=== PATIENT | male | born 1970 | race Hispanic/Latino ===

== ENCOUNTER 2019-11-18 14:24 | Inpatient (IN) | payer BC, OTHER ==
[~2019-11-18] VITALS: Ht 175.3 cm; Wt 100.8 kg
[2019-11-18] MEDS ORDERED: ONDANSETRON HCL INJ 2MG/ML 2ML 2 MG/ML VIAL IV STA (14:38)
[2019-11-18] MEDS ORDERED: ONDANSETRON HCL INJ 2MG/ML 2ML 2 MG/ML VIAL ONE (14:41)
[2019-11-18] MEDS ORDERED: MORPHINE SULFATE INJ 4 MG/ML INJ 1ML IV PRN (14:45)
[2019-11-18] MEDS ORDERED: MORPHINE SULFATE INJ 4 MG/ML INJ 1ML IV ONE (14:45)
[2019-11-18] MEDS ORDERED: MORPHINE SULFATE 5 MG/ML VIAL IV ONE (14:45)
[2019-11-18] MEDS ORDERED: MORPHINE SULFATE INJ 4 MG/ML INJ 1ML ONE (14:47)
[2019-11-18] MEDS ORDERED: MORPHINE SULFATE 2 MG/ML SYR 1ML IV PRN (15:00)
[2019-11-18 15:03] LABS: BASOPHILS # (AUTO) 0.1 (0.0-0.1); BASOPHILS % 0.5 % (0.0-1.0); EOSINOPHILS # (AUTO) 0.1 (0.0-0.4); EOSINOPHILS % 0.6 % (0.0-6.0); HEMATOCRIT 50.3 % (38.2-49.6); HEMOGLOBIN 16.9 g/dL (14.0-18.0); LYMPHOCYTES # (AUTO) 3.6 (1.0-3.2); LYMPHOCYTES % 32.5 % (18.0-39.1); MEAN CORPUSCULAR HEMOGLOBIN 29.3 pg (28-32); MEAN CORPUSCULAR HGB CONC 33.6 g/dL (31-35); MEAN CORPUSCULAR VOLUME 87.2 fL (81-99); MONOCYTES % 9.4 % (4.4-11.3); NEUTROPHILS # (AUTO) 6.2 (2.1-6.9); NEUTROPHILS % 56.7 % (38.7-80.0); PLATELET COUNT 281 x10e3/uL (140-360); RED BLOOD COUNT 5.77 x10e6/uL (4.3-5.7); RED CELL DISTRIBUTION WIDTH 13.6 % (11.7-14.4)
[2019-11-18 15:22] LABS: ALANINE AMINOTRANSFERASE 663 IU/L (0-55); ALBUMIN 4.2 g/dL (3.5-5.0); ALBUMIN/GLOBULIN RATIO 1.2 (0.8-2.0); ALKALINE PHOSPHATASE 158 IU/L (40-150); ANION GAP 18.1 mmol/L (8-16); BLOOD UREA NITROGEN 14 mg/dL (7-26); BUN/CREATININE RATIO 12 (6-25); CALCIUM 9.6 mg/dL (8.4-10.2); CARBON DIOXIDE 21 mmol/L (22-29); CHLORIDE 104 mmol/L (98-107); CREATINE KINASE 137 IU/L (30-200); CREATININE, SERUM 1.13 mg/dL (0.72-1.25); EST GLOMERULAR FILTRATION RATE > 60 ML/MIN (60-); GLUCOSE 138 mg/dL (74-118); POTASSIUM 3.1 mmol/L (3.5-5.1); SODIUM 140 mmol/L (136-145)
[2019-11-18] MEDS ORDERED: PIPER-TAZ 3.375 GM 50 ML IV STA (15:35)
--- NOTE | 2019-11-18 16:15 | Diagnostic Imaging Report ---
EXAMINATION: CHEST SINGLE (PORTABLE) INDICATION: Vomiting COMPARISON: None FINDINGS: LINES/TUBES:None LUNGS:The lungs are well-inflated. No focal consolidation or pulmonary edema. PLEURA:No pleural effusion or pneumothorax. MEDIASTINUM:The cardiomediastinal silhouette appears normal in size and shape. BONES/SOFT TISSUES:No acute osseous injury. Right clavicle ORIF hardware in place. ABDOMEN:No free air under the diaphragm. IMPRESSION: No focal pneumonia or pulmonary edema. Signed by: Haile Dunn MD on 11/18/2019 4:12 PM
[2019-11-18] MEDS ORDERED: SODIUM CHLORIDE 0.9% 50ML 50 ML ONE (16:28)
[2019-11-18] MEDS ORDERED: IOPAMIDOL 370 MG/ML 200 ML INFUS..BTL INJ ONE (16:28)
[2019-11-18] MEDS ORDERED: SODIUM CHLORIDE 0.9% 1000ML 1,000 ML IV STA (17:05)
[2019-11-18] MEDS ORDERED: SODIUM CHLORIDE 0.9% 1000ML 1,000 ML IV SCH (17:15)
[2019-11-18] MEDS ORDERED: HYDROMORPHONE 1MG/1ML INJ IV PRN ×2 (17:15→17:45)
--- OUTSIDE RECORDS SUMMARY | 2019-11-18 17:23 | XMS REPORT ---
Author Author [facility] Address Unknown Phone Unavailable Care Team Providers Care Svp Programmatic Tv Name Role Phone BEAR IRENE Unavailable Unavailable Problems This patient has no known problems. Allergies, Adverse Reactions, Alerts This patient has no known allergies or adverse reactions. Medications This patient has no known medications. Results Test Description Test Time Test Comments Text Results Atomic Results Result Comments CHEST SINGLE (PORTABLE) 2019-11-18 16:11:00 [place] [address] Patient Name: MIGUEL URIOSTEGUI MR #: [id number] : 1970 Age/Sex: 49/M Req #: [id number] Adm Physician: Ordered by: BEAR IRENE DO Report #: [id number] Location: ER Room/Bed: Procedure: [id number] DX/CHEST SINGLE (PORTABLE) Exam Date: 11/18/19 Exam Time: 1545 REPORT STATUS: Signed EXAMINATION: CHEST SINGLE (PORTABLE) I NDICATION: Vomiting COMPARISON: None FINDINGS: LINES/TUBES:None LUNGS:The lungs are well-inflated. No focal consolidation or pulmonary edema. PLEURA:No pleural effusion or pneumothorax. MEDIASTINUM:The cardiomediastinal silhouette appears normal in size and shape. BONES/SOFT TISSUES:No acute osseous injury. Right clavicle ORIF hardware in place. ABDOMEN:No free air under the diaphragm. IMPRESSION: No focal pneumonia or pulmonary edema. Signed by: Brent Harris MD on 11/18/2019 4:12 PM Dictated By: BRENT HARRIS MD 1612 Transcribed By: GORAN on 11/18/19 1612 COPY TO: BEAR IRENE DO
--- NOTE | 2019-11-18 17:38 | NUR ---
calling deborah for report
--- NOTE | 2019-11-18 18:01 | Diagnostic Imaging Report ---
EXAM: CT Abdomen and Pelvis WITH contrast INDICATION: VOMITING COMPARISON: None. TECHNIQUE: Abdomen and pelvis were scanned utilizing a multidetector helical scanner from the lung base to the pubic symphysis after administration of IV contrast. Coronal and sagittal reformations were obtained. Dose modulation, iterative reconstruction, and/or weight based adjustment of the mA/kV was utilized to reduce the radiation dose to as low as reasonably achievable. Routine protocol was performed. Scan was performed when during portal venous phase. IV CONTRAST: 150 mL of Omnipaque 300 ORAL CONTRAST: Water COMPLICATIONS: None RADIATION DOSE: Total DLP: 716.59 mGy-cm Estimated effective dose: (DLP x 0.015 x size factor) mSv CTDIvol has been reviewed. It is below the limits set by the Radiation Protocol Committee (RPC). FINDINGS: LINES and TUBES: None. LOWER THORAX: Unremarkable HEPATOBILIARY: The liver is diffuse hypodense compared to the spleen, consistent with diffuse hepatic diffuse hepatic steatosis. No focal hepatic lesions. No biliary ductal dilation. GALLBLADDER: No radio-opaque stones or sludge. No gallbladder wall thickening. SPLEEN: No splenomegaly. No focal splenic lesion. PANCREAS: There is very mild edema on infiltration of the pancreas with adjacent inflammatory stranding noted. There is a small peripancreatic amorphous fluid collection seen. No evidence of pseudocyst formation. The pancreas demonstrates adequate enhancement excluding necrosis. No focal masses or ductal dilatation. ADRENALS: No adrenal nodules KIDNEYS/URETERS: Kidneys enhance symmetrically. No hydronephrosis. No cystic or solid mass lesions. No stones. GI TRACT: No abnormal distention, wall thickening, or evidence of bowel obstruction. PELVIC ORGANS/BLADDER: Unremarkable. LYMPH NODES: No lymphadenopathy. VESSELS: No aortic aneurysm or dissection. PERITONEUM / RETROPERITONEUM: No free air. Small volume of fluid is seen in the pelvis. BONES: No abnormal lytic or blastic lesion. SOFT TISSUES: There is a small fat containing para-umbilical hernia. IMPRESSION: Mild acute pancreatitis. Signed by: Sandip Mayes MD on 11/18/2019 5:57 PM
--- NOTE | 2019-11-18 19:15 | NUR ---
patient received awake, alert, sitting up in bed. vss. patient continues to c/o upper abd pain 8/10 with nausea. iv bolus continues to infuse without difficulty. admit assessment/history obtained. patient instructed to call for assistance when needed.
--- NOTE | 2019-11-18 19:35 | NUR ---
PATIENT IN STABLE CONDITION WITH NO S/S OF RESPIRATORY DISTRESS. IV BOLUS INFUSING. TELEMETRY APPLIED. CALL LIGHT IS WITHIN REACH- PATIENT INSTRUCTED TO CALL FOR ASSISTANCE NEEDED. BEDSIDE SHIFT REPORT GIVEN TO ONCOMING NURSE.
[2019-11-18 20:01] VITALS: BP 156/82
[2019-11-18] MEDS: ONDANSETRON HCL INJ 2MG/ML 2ML 2 MG/ML VIAL IV PRN (20:59)
[2019-11-18] MEDS: HYDROMORPHONE 2MG/ML 2 MG/ML ML IV PRN (20:59)
--- NOTE | 2019-11-18 21:00 | NUR ---
patient medicated with dilaudid 2mg and zofran 4mg ivp for c/o upper abd pain 03/02 at this time.
[2019-11-18 22:31] VITALS: BP 156/82
[2019-11-19] VITALS (9 sets, daily range): BP systolic 133–157; BP diastolic 78–88
[2019-11-19] MEDS: ONDANSETRON HCL INJ 2MG/ML 2ML 2 MG/ML VIAL IV PRN ×5 (01:12→21:43)
[2019-11-19] MEDS: HYDROMORPHONE 2MG/ML 2 MG/ML ML IV PRN ×6 (01:12→21:43)
--- NOTE | 2019-11-19 01:12 | NUR ---
patient medicated with dilaudid 2mg and zofran 4mg ivp for c/o upper abd pain 03/02 with n/v at this time.
[2019-11-19 05:30] LABS: BASOPHILS % 0.1 % (0.0-1.0); EOSINOPHILS # (AUTO) 0.1 (0.0-0.4); EOSINOPHILS % 0.8 % (0.0-6.0); HEMATOCRIT 50.4 % (38.2-49.6); HEMOGLOBIN 16.6 g/dL (14.0-18.0); LYMPHOCYTES % 6.6 % (18.0-39.1); MEAN CORPUSCULAR HEMOGLOBIN 28.8 pg (28-32); MEAN CORPUSCULAR HGB CONC 32.9 g/dL (31-35); MEAN CORPUSCULAR VOLUME 87.3 fL (81-99); MONOCYTES # (AUTO) 0.9 (0.2-0.8); MONOCYTES % 6.4 % (4.4-11.3); NEUTROPHILS # (AUTO) 12.4 (2.1-6.9); NEUTROPHILS % 85.8 % (38.7-80.0); PLATELET COUNT 205 x10e3/uL (140-360); RED BLOOD COUNT 5.77 x10e6/uL (4.3-5.7); RED CELL DISTRIBUTION WIDTH 13.9 % (11.7-14.4)
--- NOTE | 2019-11-19 05:30 | NUR ---
patient medicated with dilaudid 2mg and zofran 4mg ivp for c/o upper abd pain 03/02 at this time.
[2019-11-19 05:53] LABS: ALANINE AMINOTRANSFERASE 454 IU/L (0-55); ALBUMIN 3.9 g/dL (3.5-5.0); ALBUMIN/GLOBULIN RATIO 1.3 (0.8-2.0); ALKALINE PHOSPHATASE 134 IU/L (40-150); ANION GAP 13.1 mmol/L (8-16); BLOOD UREA NITROGEN 13 mg/dL (7-26); BUN/CREATININE RATIO 15 (6-25); CALCIUM 8.7 mg/dL (8.4-10.2); CARBON DIOXIDE 21 mmol/L (22-29); CHLORIDE 108 mmol/L (98-107); CREATININE, SERUM 0.85 mg/dL (0.72-1.25); EST GLOMERULAR FILTRATION RATE > 60 ML/MIN (60-); GLUCOSE 124 mg/dL (74-118); POTASSIUM 4.1 mmol/L (3.5-5.1); SODIUM 138 mmol/L (136-145)
--- NOTE | 2019-11-19 07:00 | NUR ---
BESIDE SHIFT REPORT RECEIVED FROM INSTRUCTOR HAIRSPRING RN. PT DENIES NEEDS AT THIS TIME.
[2019-11-19] MEDS: DEXTROSE 5%/0.45% SOD CHL 1,000 ML IV SCH ×2 (09:46→17:40)
--- NOTE | 2019-11-19 09:50 | NUR ---
Pt unavailable at this time. Pt's nurse performing procedure bedside. Will follow up as able. GENARO PASTRANA Parking Lot Signaler [facility] Care Department O: [phone]
[2019-11-19] MEDS ORDERED: GADOBENATE DIMEGLUMINE 1 ML IV ONE (09:58)
[2019-11-19] MEDS ORDERED: SODIUM CHLORIDE 0.9% 100 ML ONE (09:58)
[2019-11-19 10:15] LABS: AMYLASE 604 U/L (25-125); LIPASE 703 U/L (8-78)
--- NOTE | 2019-11-19 19:12 | NUR ---
RECEIVED BEDSIDE SHIFT REPORT FROM PREVIOUS NURSE. CALL LIGHT WITHIN REACH. PATIENT SITTING IN BED. PATIENT IN NO PAIN OR DISTRESS.
[2019-11-19 19:31] LABS: ALANINE AMINOTRANSFERASE 335 IU/L (0-55); ALBUMIN 3.6 g/dL (3.5-5.0); ALBUMIN/GLOBULIN RATIO 1.2 (0.8-2.0); ALKALINE PHOSPHATASE 112 IU/L (40-150); ANION GAP 9.5 mmol/L (8-16); BLOOD UREA NITROGEN 11 mg/dL (7-26); BUN/CREATININE RATIO 13 (6-25); CALCIUM 9.3 mg/dL (8.4-10.2); CARBON DIOXIDE 28 mmol/L (22-29); CHLORIDE 104 mmol/L (98-107); CREATININE, SERUM 0.82 mg/dL (0.72-1.25); EST GLOMERULAR FILTRATION RATE > 60 ML/MIN (60-); GLUCOSE 112 mg/dL (74-118); POTASSIUM 4.5 mmol/L (3.5-5.1); SODIUM 137 mmol/L (136-145)
[2019-11-20] VITALS (8 sets, daily range): BP systolic 130–149; BP diastolic 68–85
[2019-11-20] MEDS: ONDANSETRON HCL INJ 2MG/ML 2ML 2 MG/ML VIAL IV PRN ×2 (01:48→05:57)
[2019-11-20] MEDS: HYDROMORPHONE 2MG/ML 2 MG/ML ML IV PRN ×2 (01:48→05:57)
--- NOTE | 2019-11-20 03:30 | NUR ---
DID HOURLY ROUNDING. PATIENT ASLEEP IN BED. CALL LIGHT WITHIN REACH.
[2019-11-20] MEDS: DEXTROSE 5%/0.45% SOD CHL 1,000 ML IV SCH (03:47)
[2019-11-20 05:55] LABS: BASOPHILS % 0.1 % (0.0-1.0); EOSINOPHILS % 0.1 % (0.0-6.0); HEMATOCRIT 50.1 % (38.2-49.6); HEMOGLOBIN 16.5 g/dL (14.0-18.0); LYMPHOCYTES # (AUTO) 1.2 (1.0-3.2); LYMPHOCYTES % 7.7 % (18.0-39.1); MEAN CORPUSCULAR HEMOGLOBIN 29.1 pg (28-32); MEAN CORPUSCULAR HGB CONC 32.9 g/dL (31-35); MEAN CORPUSCULAR VOLUME 88.4 fL (81-99); MONOCYTES # (AUTO) 1.2 (0.2-0.8); MONOCYTES % 7.7 % (4.4-11.3); PLATELET COUNT 167 x10e3/uL (140-360); RED BLOOD COUNT 5.67 x10e6/uL (4.3-5.7); RED CELL DISTRIBUTION WIDTH 13.9 % (11.7-14.4)
--- NOTE | 2019-11-20 06:00 | NUR ---
PATIENT COMPLAINING OF MID BACK PAIN THAT MAKES IT HARD TO BREATH AND WANTS THE DOCTOR TO KNOW. CALLED AND TALKED TO DR. Bipin HERNANDEZ ABOUT THE PATIENT CONCERN. DR. Albina HERNANDEZ SAID HE PUT AN ORDER IN FOR GI CONSULT, DR. Faina HERNANDEZ 2 DAYS AGO WHEN THE PATIENT WAS IN ER AND I SAID NO CONSULTS ARE IN THE COMPUTER AND I CAN PUT A CONSULT FOR THE DOCTOR. DR. Bipin HERNANDEZ SAID TO PUT THE CONSULT AND CALL DR. Faina HERNANDEZ AND SAY TO SEE THE PATIENT FOR ACUTE PANCEATITIS.
--- NOTE | 2019-11-20 06:05 | NUR ---
CALLED DR. Faina HERNANDEZ ABOUT THE CONSULT AND HE SAID HIS BROTHER IS CALLING HIM AND WILL SEE THE PATIENT
[2019-11-20 06:20] LABS: AMYLASE 317 U/L (25-125); LIPASE 245 U/L (8-78)
--- NOTE | 2019-11-20 07:00 | NUR ---
BESIDE SHIFT REPORT RECEIVED FROM MANNEQUIN DECORATOR RN. PT DENIES NEEDS AT THIS TIME.
--- NOTE | 2019-11-20 07:07 | NUR ---
GAVE BEDSIDE SHIFT REPORT TO ONCOMING NURSE. CALL LIGHT WITHIN REACH. PATIENT IN BED.
[2019-11-20] MEDS ORDERED: KETOROLAC TROMETHAMINE 30 MG/ML VIAL IV ONE (08:15)
[2019-11-20] MEDS ORDERED: LACTATED RINGER'S 1,000 ML INJ SCH (09:00)
[2019-11-20] MEDS ORDERED: LACTATED RINGER'S 1,000 ML INJ ONE (09:00)
[2019-11-20 09:34] LABS: ALANINE AMINOTRANSFERASE 272 IU/L (0-55); ALBUMIN 3.7 g/dL (3.5-5.0); ALBUMIN/GLOBULIN RATIO 1.1 (0.8-2.0); ALKALINE PHOSPHATASE 104 IU/L (40-150); ANION GAP 15.6 mmol/L (8-16); BLOOD UREA NITROGEN 9 mg/dL (7-26); BUN/CREATININE RATIO 11 (6-25); CALCIUM 9.3 mg/dL (8.4-10.2); CARBON DIOXIDE 20 mmol/L (22-29); CHLORIDE 103 mmol/L (98-107); CREATININE, SERUM 0.85 mg/dL (0.72-1.25); EST GLOMERULAR FILTRATION RATE > 60 ML/MIN (60-); GLUCOSE 97 mg/dL (74-118); POTASSIUM 3.6 mmol/L (3.5-5.1); SODIUM 135 mmol/L (136-145)
--- NOTE | 2019-11-20 09:55 | Diagnostic Imaging Report ---
TECHNIQUE: MRI of the abdomen and MRCP WITHOUT and WITH intravenous contrast. 3-D volume reconstructions were obtained to evaluate the biliary ductal system. INDICATION: ^RO PANCREATITIS. COMPARISON: None. FINDINGS: LOWER THORAX: Unremarkable. LIVER: No hepatic signal abnormality. No focal hepatic lesions. BILIARY: A single stone in the gallbladder measures 0.4 cm. There is no gallbladder distention, but there is mild gallbladder wall edema. No biliary ductal dilatation or filling defect. The common bile duct measures 0.4 cm in diameter. SPLEEN: No splenomegaly. PANCREAS: There is interstitial increased T2-weighted signal in the pancreas. In addition, fluid is seen around the pancreas extending down both paracolic gutters, left greater than right. ADRENALS: No adrenal nodules. KIDNEYS/URETERS: No hydronephrosis or solid mass lesions. A right lower pole simple renal cyst measures 0.6 cm. PERITONEUM/RETROPERITONEUM: Small volume ascites. LYMPH NODES: No lymphadenopathy. VESSELS: Unremarkable. GI TRACT: No distention or wall thickening. BONES AND SOFT TISSUES: Unremarkable. IMPRESSION: 1. Acute interstitial edematous pancreatitis without pancreatic necrosis or drainable peripancreatic fluid collection. 2. Cholelithiasis without acute cholecystitis. The gallbladder wall thickening is likely reactive to the pancreatitis. 3. No biliary ductal dilation or choledocholithiasis. Signed by: Rivera Austin JR, MD on 11/20/2019 9:52 AM
--- NOTE | 2019-11-20 11:31 | Diagnostic Imaging Report ---
EXAM: Right upper quadrant abdominal ultrasound INDICATION: Right upper quadrant pain COMPARISON: Abdomen and pelvis CT of 11/18/2019 TECHNIQUE: Transverse and longitudinal images of the right upper quadrant abdomen were obtained FINDINGS: Liver: Size: 16.4 cm in the right midclavicular line, normal Appearance: Increased echogenicity, smooth contour Mass: No focal masses Gallbladder: 1 cm dependent gallstone in the gallbladder. No gallbladder wall thickening, pericholecystic fluid, or gallbladder distention. Negative sonographic Gibbons's sign. Bile Ducts: Intrahepatic Ducts: No dilatation Extrahepatic Ducts: Common bile duct measures 4 mm Pancreas: Not well visualized due to overlying bowel gas. Kidney: The right kidney measures 12.1 cm without evidence of hydronephrosis or stone. Vessels: Aorta: Visualized portions are normal Inferior Vena Cava: Visualized portions are normal Main Portal Vein: 0.8 cm, normal size with hepatopetal flow. Free Fluid: No ascites or pleural effusion IMPRESSION: Cholelithiasis without sonographic evidence of cholecystitis. Signed by: Haile Dunn MD on 11/20/2019 11:27 AM
[2019-11-20] MEDS: KETOROLAC TROMETHAMINE 30 MG/ML VIAL IV PRN ×2 (12:05→18:02)
[2019-11-20] MEDS: LACTATED RINGER'S 1,000 ML INJ SCH ×2 (12:56→18:02)
--- NOTE | 2019-11-20 13:12 | Diagnostic Imaging Report ---
EXAMINATION: CHEST 2 VIEWS INDICATION: Pneumonia COMPARISON: Chest radiograph 11/18/2019 FINDINGS: LINES/TUBES:EKG leads overlie the chest. LUNGS:The lungs are moderately inflated. Minimal bibasilar patchy opacities. PLEURA:No pleural effusion or pneumothorax. MEDIASTINUM:The cardiomediastinal silhouette appears unchanged in size and shape. BONES/SOFT TISSUES:No acute osseous injury. Unchanged right clavicular hardware. ABDOMEN:No free air under the diaphragm. IMPRESSION: No focal pneumonia or pulmonary edema. Mild bibasilar subsegmental atelectasis. Signed by: Haile Dunn MD on 11/20/2019 1:09 PM
--- NOTE | 2019-11-20 19:15 | NUR ---
RECEIVED REPORT FROM PREVIOUS NURSE. CALL LIGHT WITHIN REACH. PATIENT IN RECLINER.
[2019-11-21] VITALS (8 sets, daily range): BP systolic 114–145; BP diastolic 46–83
[2019-11-21] MEDS: KETOROLAC TROMETHAMINE 30 MG/ML VIAL IV PRN ×2 (00:30→06:31)
[2019-11-21] MEDS: LACTATED RINGER'S 1,000 ML INJ SCH ×2 (00:30→05:54)
[2019-11-21] MEDS: ONDANSETRON HCL INJ 2MG/ML 2ML 2 MG/ML VIAL IV PRN ×2 (00:30→06:31)
--- NOTE | 2019-11-21 03:04 | NUR ---
DID HOURLY ROUNDING. PATIENT ASLEEP IN BED.
[2019-11-21 05:55] LABS: BASOPHILS % 0.4 % (0.0-1.0); EOSINOPHILS # (AUTO) 0.1 (0.0-0.4); EOSINOPHILS % 1.1 % (0.0-6.0); HEMATOCRIT 41.8 % (38.2-49.6); HEMOGLOBIN 13.9 g/dL (14.0-18.0); MEAN CORPUSCULAR HEMOGLOBIN 28.9 pg (28-32); MEAN CORPUSCULAR HGB CONC 33.3 g/dL (31-35); MEAN CORPUSCULAR VOLUME 86.9 fL (81-99); MONOCYTES # (AUTO) 1.2 (0.2-0.8); MONOCYTES % 10.9 % (4.4-11.3); NEUTROPHILS # (AUTO) 8.8 (2.1-6.9); NEUTROPHILS % 78.3 % (38.7-80.0); PLATELET COUNT 170 x10e3/uL (140-360); RED BLOOD COUNT 4.81 x10e6/uL (4.3-5.7); RED CELL DISTRIBUTION WIDTH 13.5 % (11.7-14.4)
[2019-11-21 06:42] LABS: AMYLASE 148 U/L (25-125); ANION GAP 9.7 mmol/L (8-16); BLOOD UREA NITROGEN 12 mg/dL (7-26); BUN/CREATININE RATIO 16 (6-25); CALCIUM 8.7 mg/dL (8.4-10.2); CARBON DIOXIDE 25 mmol/L (22-29); CHLORIDE 105 mmol/L (98-107); CREATININE, SERUM 0.76 mg/dL (0.72-1.25); EST GLOMERULAR FILTRATION RATE > 60 ML/MIN (60-); GLUCOSE 83 mg/dL (74-118); LIPASE 112 U/L (8-78); POTASSIUM 3.7 mmol/L (3.5-5.1); SODIUM 136 mmol/L (136-145)
--- NOTE | 2019-11-21 07:00 | NUR ---
received bedside report. pt is alert resting in bed, no s/s of distress. call light within reach and instructed pt to call RN for help
--- NOTE | 2019-11-21 07:05 | NUR ---
GAVE BEDSIDE SHIFT REPORT TO ONCOMING NURSE. CALL LIGHT WITHIN REACH. PATIENT IN BED.
[2019-11-21] MEDS ORDERED: IOPAMIDOL 300MG/ML 50ML INFUS..BTL IV ONE (10:03)
[2019-11-21] MEDS ORDERED: BUPIVACAINE 0.5%/EPI 30 ML SDV INJ ONE (10:04)
[2019-11-21] MEDS ORDERED: PANTOPRAZOLE 40 MG 10ML VIAL IV SCH (11:30)
[2019-11-21] MEDS ORDERED: LEVOFLOXACIN 500MG/D5W 100ML 100 ML IV SCH (11:30)
[2019-11-21] MEDS ORDERED: ACETAMINOPHEN 1000 MG/100 ML IV PRN (11:30)
[2019-11-21] MEDS ORDERED: HYDROCODONE/APAP 7.5MG-325MG 1 EA TAB PO PRN (11:30)
[2019-11-21] MEDS ORDERED: ONDANSETRON HCL INJ 2MG/ML 2ML 2 MG/ML VIAL IV PRN (11:30)
--- NOTE | 2019-11-21 12:20 | Operative Report ---
DATE OF PROCEDURE: 11/21/2019 SURGEON: Jamison Prakash MD PREOPERATIVE DIAGNOSES: Cholecystitis, cholelithiasis, and gallstone pancreatitis, rule out common bile duct stone. POSTOPERATIVE DIAGNOSES: Cholecystitis, cholelithiasis, gallstone pancreatitis. No retained common duct stones. OPERATION PERFORMED: Laparoscopic cholecystectomy with intraoperative cholangiograms. ANESTHESIA: General. COMPLICATIONS: None. ESTIMATED BLOOD LOSS: Minimal. DESCRIPTION OF PROCEDURE: The patient lying in bed in the supine position under good general endotracheal anesthesia. The abdomen was prepped with Betadine solution and draped in the usual manner. A Veress needle was placed into the umbilicus and pneumoperitoneum was established without any difficulty. An 11 mm trocar was placed into the umbilicus and a 10 mm videolaparoscope was placed into the intraabdominal cavity. Under direct vision, three 5 mm trocars were placed in the right subcostal region. Videolaparoscopy at this point revealed distended gallbladder. There were no other intraabdominal abnormalities. The peritoneum overlying the neck of the gallbladder was then opened and the cystic duct was identified. The cystic duct was followed to its junction with the common duct. The cystic duct was then circumferentially dissected and a clip was placed at the neck of the gallbladder. A small opening was made into the cystic duct and a cholangiocath was introduced into the cystic duct. Using fluoroscopy, half-strength dye was then introduced into the biliary tree, this showed free flow of dye into the duodenum and no retained common duct filling defects. The cholangiocath was then removed. The cystic duct was then doubly clipped and divided. The cystic artery was similarly doubly clipped and divided. The gallbladder was then slowly and carefully taken off the liver bed using the cautery scissors and perfect hemostasis was ascertained. The gallbladder was then grasped through the umbilical port and removed without any difficulty. Videolaparoscopy was then again carried out. The liver bed was found to be perfectly dry. All the excess fluid was aspirated. The pneumoperitoneum was evacuated and all the trocars were removed under direct vision. The midline fascia at the umbilicus was then closed with a [id number] of 0 Vicryl. All layers were infiltrated on the way out with solution of 0.25% Marcaine. Subcutaneous tissue was approximated with 3-0 Vicryl and the skin was closed with subcuticular 5-0 Vicryl. Benzoin, Steri-Strips and Band-Aids were applied. The sponge, lap, and needle count was correct. The patient tolerated the procedure well and returned to the recovery room in stable condition. MD GERDA Santoyo/SUZY /[id number]
[2019-11-21] MEDS ORDERED: FENTANYL CITRATE/PF 100MCG/2 ML INJ ONE ×2 (12:28→15:03)
[2019-11-21] MEDS: DEXTROSE 5%/LACTATED RINGERS 1,000 ML IV SCH ×2 (13:20→22:25)
--- NOTE | 2019-11-21 14:35 | Diagnostic Imaging Report ---
OR Fluoroscopy: IMPRESSION: Fluoroscopy service provided in the OR. Interpretation not requested. Signed by: César Parikh MD on 11/21/2019 2:32 PM
[2019-11-21] MEDS ORDERED: MIDAZOLAM HCL 2 MG/2 ML VIAL ONE (15:03)
[2019-11-21] MEDS: HYDROMORPHONE 1MG/1ML INJ IV PRN ×2 (15:46→22:26)
[2019-11-21] MEDS ORDERED: ACETAMINOPHEN 1000 MG/100 ML IV ONE (18:24)
[2019-11-21] MEDS ORDERED: LIDOCAINE HCL 2% LOCAL INJ 5 ML SDV VIAL INJ ONE (18:24)
[2019-11-21] MEDS ORDERED: DEXAMETHASONE SOD PHOS INJ 4 MG/ML VIAL ONE (18:24)
[2019-11-21] MEDS ORDERED: PROPOFOL IV EMULSION 10 MG/ML 20 ML VIAL ONE (18:24)
[2019-11-21] MEDS ORDERED: GLYCOPYRROLATE INJ 0.2 MG/ML VIAL ONE (18:24)
[2019-11-21] MEDS ORDERED: ONDANSETRON HCL INJ 2MG/ML 2ML 2 MG/ML VIAL ONE (18:24)
[2019-11-21] MEDS ORDERED: ROCURONIUM BROMIDE 10 MG/ML 5ML VIAL IV ONE (18:24)
[2019-11-21] MEDS ORDERED: METOCLOPRAMIDE HCL 10 MG/2ML VIAL ONE (18:24)
[2019-11-21] MEDS ORDERED: NEOSTIGMINE 1 MG/ML 10ML VIAL ONE (18:24)
[2019-11-21] MEDS ORDERED: SEVOFLURANE INHAL SOLN 250 ML PEN BTL ONE (18:24)
[2019-11-22] MEDS: HYDROMORPHONE 1MG/1ML INJ IV PRN (04:25)
[2019-11-22 04:52] VITALS: BP 143/69
[2019-11-22 06:11] LABS: BASOPHILS % 0.2 % (0.0-1.0); EOSINOPHILS % 0.3 % (0.0-6.0); HEMATOCRIT 36.3 % (38.2-49.6); HEMOGLOBIN 12.2 g/dL (14.0-18.0); LYMPHOCYTES # (AUTO) 0.9 (1.0-3.2); LYMPHOCYTES % 7.9 % (18.0-39.1); MEAN CORPUSCULAR HEMOGLOBIN 29.1 pg (28-32); MEAN CORPUSCULAR HGB CONC 33.6 g/dL (31-35); MEAN CORPUSCULAR VOLUME 86.6 fL (81-99); NEUTROPHILS # (AUTO) 8.8 (2.1-6.9); NEUTROPHILS % 82.2 % (38.7-80.0); PLATELET COUNT 191 x10e3/uL (140-360); RED BLOOD COUNT 4.19 x10e6/uL (4.3-5.7); RED CELL DISTRIBUTION WIDTH 13.5 % (11.7-14.4)
[2019-11-22 06:41] LABS: ALANINE AMINOTRANSFERASE 129 IU/L (0-55); ALBUMIN 2.6 g/dL (3.5-5.0); ALBUMIN/GLOBULIN RATIO 0.8 (0.8-2.0); ALKALINE PHOSPHATASE 66 IU/L (40-150); AMYLASE 79 U/L (25-125); ANION GAP 7.9 mmol/L (8-16); BLOOD UREA NITROGEN 10 mg/dL (7-26); BUN/CREATININE RATIO 13 (6-25); CALCIUM 8.5 mg/dL (8.4-10.2); CARBON DIOXIDE 24 mmol/L (22-29); CHLORIDE 107 mmol/L (98-107); CREATININE, SERUM 0.76 mg/dL (0.72-1.25); EST GLOMERULAR FILTRATION RATE > 60 ML/MIN (60-); GLUCOSE 116 mg/dL (74-118); POTASSIUM 3.9 mmol/L (3.5-5.1); SODIUM 135 mmol/L (136-145)
[2019-11-22 07:53] VITALS: BP 135/75
[2019-11-22 08:00] VITALS: BP 135/75
[2019-11-22] MEDS: DEXTROSE 5%/LACTATED RINGERS 1,000 ML IV SCH (09:44)
--- NOTE | 2019-11-22 09:48 | NUR ---
paged Dr. Prakash to see if diet can be advanced. waiting for call back
== END 2019-11-22 11:45 | disposition home or self-care (01) | DRG 417 ==
LOC: ER 14:24 → ERHOLD 17:04 → MED/SURG3 18:25
PROC: BF131ZZ Fluoroscopy of Gallbladder and Bile Ducts using Low Osmolar Contrast (ICD-10-PCS; 2019-11-21)
PROC: 0FT44ZZ Resection of Gallbladder, Percutaneous Endoscopic Approach (ICD-10-PCS; principal; 2019-11-21 12:30)
DX: K80.12 Calculus of gallbladder with acute and chronic cholecystitis without obstruction (principal); K85.10 Biliary acute pancreatitis without necrosis or infection; J98.11 Atelectasis; E11.9 Type 2 diabetes mellitus without complications; G47.33 Obstructive sleep apnea (adult) (pediatric); K76.0 Fatty (change of) liver, not elsewhere classified
CPT/HCPCS: 36415; 71045; 71046; 74177; 74183; 74300; 76705; 80048; 80053; 80061; 82150; 82550; 82553; 83605; 83690; 84484; 85025; 87040; 87635; 88304; 93005; 96361; 99284; C1766; J1100; J1170; J1885; J1956; J2001; J2250; J2270; J2405; J2543; J2710; J2765; J3010; J7030; J7050; J7121; Q9967

== ENCOUNTER 2021-01-21 20:58 | Emergency (ER) | payer BC ==
[~2021-01-21] VITALS: Ht 175.3 cm; Wt 100.7 kg
[2021-01-21] MEDS ORDERED: KETOROLAC TROMETHAMINE 30 MG/ML VIAL IV STA (21:02)
[2021-01-21] MEDS ORDERED: ONDANSETRON HCL INJ 2MG/ML 2ML 2 MG/ML VIAL IV STA (21:02)
[2021-01-21 21:16] LABS: BASOPHILS % 0.3 % (0.0-1.0); EOSINOPHILS # (AUTO) 0.1 (0.0-0.4); EOSINOPHILS % 0.9 % (0.0-6.0); HEMATOCRIT 46.2 % (38.2-49.6); HEMOGLOBIN 15.4 g/dL (14.0-18.0); LYMPHOCYTES # (AUTO) 3.3 (1.0-3.2); LYMPHOCYTES % 38.4 % (18.0-39.1); MEAN CORPUSCULAR HEMOGLOBIN 28.7 pg (28-32); MEAN CORPUSCULAR HGB CONC 33.3 g/dL (31-35); MONOCYTES # (AUTO) 0.7 (0.2-0.8); MONOCYTES % 7.7 % (4.4-11.3); NEUTROPHILS # (AUTO) 4.5 (2.1-6.9); NEUTROPHILS % 52.5 % (38.7-80.0); PLATELET COUNT 235 x10e3/uL (140-360); RED BLOOD COUNT 5.37 x10e6/uL (4.3-5.7); RED CELL DISTRIBUTION WIDTH 12.7 % (11.7-14.4)
[2021-01-21 21:21] LABS: CLARITY,URINE CLEAR (CLEAR); COLOR,URINE YELLOW (YELLOW)
[2021-01-21 21:22] LABS: KETONES,URINE NEGATIVE (NEGATIVE); LEUKOCYTE ESTERASE ,URINE NEGATIVE (NEGATIVE); NITRITE,URINE NEGATIVE (NEGATIVE); PROTEIN,URINE DIPSTICK NEGATIVE (NEGATIVE); URINE UROBILINOGEN 0.2 mg/dL (0.2 - 1)
[2021-01-21] MEDS ORDERED: KETOROLAC TROMETHAMINE 30 MG/ML VIAL ONE (21:22)
[2021-01-21] MEDS ORDERED: ONDANSETRON HCL INJ 2MG/ML 2ML 2 MG/ML VIAL ONE (21:23)
[2021-01-21 21:29] LABS: BACTERIA,URINE RARE /HPF; MUCUS,URINE FEW (RARE)
[2021-01-21 21:33] LABS: ANION GAP 15.9 mmol/L (8-16); CALCIUM 9.8 mg/dL (8.4-10.2); CREATININE, SERUM 1.24 mg/dL (0.72-1.25); POTASSIUM 3.9 mmol/L (3.5-5.1)
[2021-01-21] MEDS ORDERED: KETOROLAC TROME10 MG PO (23:03)
[2021-01-21] MEDS ORDERED: HYDROCODON-ACE1 EAC9 PO (23:03)
[2021-01-21] MEDS ORDERED: FLOMAX0.4 MG PO (23:03)
[2021-01-21] MEDS ORDERED: ONDANSETRON ODT4 MG PO (23:03)
== END 2021-01-21 23:22 | disposition home or self-care (01) ==
LOC: ER 21:38
DX: M54.5 Low back pain (principal); R10.32 Left lower quadrant pain; N20.1 Calculus of ureter; G47.30 Sleep apnea, unspecified
CPT/HCPCS: 36415; 74176; 80048; 81001; 85025; 93005; 99284; J1885; J2405

== ENCOUNTER 2021-11-26 07:41 | Inpatient (IN) | payer BC ==
[~2021-11-26] VITALS: Ht 175.3 cm; Wt 100.7 kg
[~2021-11-26 07:41] MED LIST: FLOMAX0.4 MG PO; HYDROCODON-ACE1 EAC9 PO; KETOROLAC TROME10 MG PO; ONDANSETRON ODT4 MG PO
[2021-11-26] MEDS ORDERED: SODIUM CHLORIDE 0.9% 1000ML 1,000 ML IV STA (07:57)
[2021-11-26] MEDS ORDERED: KETOROLAC TROMETHAMINE 30 MG/ML VIAL IV STA (07:57)
[2021-11-26] MEDS ORDERED: Morphine 4mg Syringe 4 MG/ML INJ IV STA (07:57)
[2021-11-26] MEDS ORDERED: ONDANSETRON HCL INJ 2MG/ML 2ML 2 MG/ML VIAL IV STA (07:57)
[2021-11-26 08:12] LABS: BASOPHILS # (AUTO) 0.1 (0.0-0.1); BASOPHILS % 0.8 % (0.0-1.0); EOSINOPHILS # (AUTO) 0.1 (0.0-0.4); EOSINOPHILS % 1.3 % (0.0-6.0); HEMATOCRIT 45.6 % (38.2-49.6); HEMOGLOBIN 15.2 g/dL (14.0-18.0); LYMPHOCYTES % 31.8 % (18.0-39.1); MEAN CORPUSCULAR HEMOGLOBIN 29.3 pg (28-32); MEAN CORPUSCULAR HGB CONC 33.3 g/dL (31-35); MEAN CORPUSCULAR VOLUME 87.9 fL (81-99); MONOCYTES # (AUTO) 0.5 (0.2-0.8); NEUTROPHILS # (AUTO) 3.7 (2.1-6.9); NEUTROPHILS % 57.8 % (38.7-80.0); PLATELET COUNT 243 x10e3/uL (140-360); RED BLOOD COUNT 5.19 x10e6/uL (4.3-5.7); RED CELL DISTRIBUTION WIDTH 13.2 % (11.7-14.4)
[2021-11-26 08:30] LABS: ANION GAP 11.8 mmol/L (8-16); CALCIUM 9.2 mg/dL (8.4-10.2); CREATININE, SERUM 1.21 mg/dL (0.72-1.25); POTASSIUM 3.8 mmol/L (3.5-5.1)
[2021-11-26 09:40] LABS: CLARITY,URINE CLEAR (CLEAR); COLOR,URINE YELLOW (YELLOW); KETONES,URINE TRACE (NEGATIVE); LEUKOCYTE ESTERASE ,URINE NEGATIVE (NEGATIVE); NITRITE,URINE NEGATIVE (NEGATIVE); PROTEIN,URINE DIPSTICK 1+ (NEGATIVE); URINE UROBILINOGEN 0.2 mg/dL (0.2 - 1)
[2021-11-26 10:03] LABS: BACTERIA,URINE MODERATE /HPF; EPITHELIAL CELLS,URINE FEW /LPF; MUCUS,URINE FEW (RARE)
[2021-11-26] MEDS ORDERED: Morphine 4mg Syringe 4 MG/ML INJ IV PRN (10:45)
[2021-11-26] MEDS ORDERED: ONDANSETRON HCL INJ 2MG/ML 2ML 2 MG/ML VIAL IV PRN (10:45)
[2021-11-26 12:31] VITALS: BP 142/79
[2021-11-26] MEDS: SODIUM CHLORIDE 0.9% 1000ML 1,000 ML IV SCH ×3 (12:47→19:38)
[2021-11-26] MEDS ORDERED: FENTANYL CITRATE/PF 100MCG/2 ML INJ ONE (13:26)
[2021-11-26 16:46] VITALS: BP 124/71
[2021-11-26 18:55] VITALS: BP 124/71
[2021-11-26 20:00] VITALS: BP 129/68
[2021-11-26 20:30] VITALS: BP 128/68
[2021-11-26] MEDS ORDERED: DOCUSATE SODIUM 100 MG CAP PO PRN (21:15)
[2021-11-26 22:10] LABS: CHOL/HDL RATIO 4.2 (3.9-4.7)
[2021-11-27] VITALS: BP 118/63
[2021-11-27] MEDS: SODIUM CHLORIDE 0.9% 1000ML 1,000 ML IV SCH (03:39)
[2021-11-27 04:00] VITALS: BP 145/76
[2021-11-27 05:32] LABS: BASOPHILS % 0.4 % (0.0-1.0); EOSINOPHILS # (AUTO) 0.1 (0.0-0.4); EOSINOPHILS % 1.4 % (0.0-6.0); LYMPHOCYTES # (AUTO) 1.7 (1.0-3.2); LYMPHOCYTES % 21.4 % (18.0-39.1); MEAN CORPUSCULAR HEMOGLOBIN 29.3 pg (28-32); MEAN CORPUSCULAR HGB CONC 32.6 g/dL (31-35); MONOCYTES # (AUTO) 0.7 (0.2-0.8); MONOCYTES % 9.2 % (4.4-11.3); NEUTROPHILS # (AUTO) 5.2 (2.1-6.9); NEUTROPHILS % 67.2 % (38.7-80.0); PLATELET COUNT 210 x10e3/uL (140-360); RED BLOOD COUNT 4.78 x10e6/uL (4.3-5.7); RED CELL DISTRIBUTION WIDTH 13.2 % (11.7-14.4)
[2021-11-27 05:58] LABS: ALBUMIN 3.4 g/dL (3.5-5.0); ALBUMIN/GLOBULIN RATIO 1.3 (0.8-2.0); ANION GAP 9.9 mmol/L (8-16); CALCIUM 8.2 mg/dL (8.4-10.2); CREATININE, SERUM 0.91 mg/dL (0.72-1.25); POTASSIUM 3.9 mmol/L (3.5-5.1)
[2021-11-27 07:45] VITALS: BP 125/66
[2021-11-27] MEDS ORDERED: IOPAMIDOL 300MG/ML 50ML INFUS..BTL IV ONE (08:41)
[2021-11-27] MEDS ORDERED: MEPERIDINE HCL INJ 25 MG/ML VIAL ONE (10:35)
[2021-11-27 10:47] VITALS: BP 127/76
[2021-11-27 13:14] VITALS: BP 134/72
[2021-11-27 15:31] VITALS: BP 143/75
[2021-11-27] MEDS ORDERED: CEPHALEXIN500 MG PO (17:14)
== END 2021-11-27 18:45 | disposition home or self-care (01) | DRG 661 ==
LOC: ER 07:48 → ERHOLD 10:39 → MED/SURG 11:58
PROVIDERS: ADMIT Internal Medicine; ATTEND Internal Medicine
PROC: 0TC68ZZ Extirpation of Matter from Right Ureter, Via Natural or Artificial Opening Endoscopic (ICD-10-PCS; 2021-11-27)
PROC: BT1D1ZZ Fluoroscopy of Right Kidney, Ureter and Bladder using Low Osmolar Contrast (ICD-10-PCS; principal; 2021-11-27 08:41)
PROC: 0T768DZ Dilation of Right Ureter with Intraluminal Device, Via Natural or Artificial Opening Endoscopic (ICD-10-PCS; 2021-11-27 08:41)
DX: N13.6 Pyonephrosis (principal); E11.9 Type 2 diabetes mellitus without complications; E66.9 Obesity, unspecified; Z68.32 Body mass index [BMI] 32.0-32.9, adult; Z87.442 Personal history of urinary calculi; Z20.822 Contact with and (suspected) exposure to COVID-19
CPT/HCPCS: 36415; 74176; 74420; 80048; 80053; 80061; 81001; 83036; 85025; 87086; 88300; 99284; C1758; C2617; J0696; J1885; J2175; J2270; J2405; J3010; J7030; U0002

== ENCOUNTER → 2022-12-24 | Day surgery (SDC) | payer BC ==
[~2022-12-24] MED LIST changes: +CEPHALEXIN500 MG PO; +DICYCLOMINE HCL10 MG PO; +LACTATED RINGER'S 1,000 ML ONE; +LIDOCAINE HCL 2% LOCAL INJ 5 ML SDV VIAL INJ ONE; +MIDAZOLAM HCL 2 MG/2 ML VIAL ONE; +PROPOFOL IV EMULSION 10 MG/ML 20 ML VIAL ONE; +VITAMIN C PO; +VITAMIN D3 PO
[2022-12-24 09:29] VITALS: TEMP 97.3
[2022-12-24 09:45] VITALS: BP 139/79; PULSE 60; RESP 16; O2SAT 98
== END | disposition home or self-care (01) ==
LOC: OR 07:28
PROVIDERS: ATTEND Internal Medicine Gastroenterology
DX: Z12.11 Encounter for screening for malignant neoplasm of colon (principal); D12.2 Benign neoplasm of ascending colon; R15.9 Full incontinence of feces; K57.30 Diverticulosis of large intestine without perforation or abscess without bleeding; R19.7 Diarrhea, unspecified; K64.4 Residual hemorrhoidal skin tags; K64.8 Other hemorrhoids; K21.9 Gastro-esophageal reflux disease without esophagitis; G47.33 Obstructive sleep apnea (adult) (pediatric); I49.9 Cardiac arrhythmia, unspecified; R03.0 Elevated blood-pressure reading, without diagnosis of hypertension; Z01.810 Encounter for preprocedural cardiovascular examination; Z68.34 Body mass index [BMI] 34.0-34.9, adult; Z87.19 Personal history of other diseases of the digestive system; Z80.0 Family history of malignant neoplasm of digestive organs
CPT/HCPCS: 45385; 93005; J2001; J2250; J2704; J7121; 45378